=== PATIENT | male | born 1970 | race Two or more races ===

== ENCOUNTER 2019-02-09 11:26 | Emergency (ER) | payer OTHER ==
--- NOTE | 2019-02-09 12:27 | EDM.PDOC ---
ED HPI GENERAL MEDICAL PROBLEM - General Chief Complaint: Upper Extremity Injury/Pain Stated Complaint: BOTH HANDS ARE NUMB Time Seen by Provider: 02/09/19 11:30 Source of Information: Reports: Patient History Limitations: Reports: No Limitations - History of Present Illness INITIAL COMMENTS - FREE TEXT/NARRATIVE: Pt is 48yo M comes in today for bilateral UE numbness/tingling x 5 days. He states it's worst in the upper arm in the morning after sleeping. He then states the elbow to the fingers remain numb throughout the rest of the day, worse when he lifts his arms above his head. 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 He states moving the extremities help. No other symptoms at this time. He has a h/o HTN and HLD, no h/o DM2. He states there is a family h/o DM2 in his parents and sisters. He is from [place] and his PCP is in [place]. He will only be here for this job for another week or so. - Related Data Allergies Allergy/AdvReac Type Severity Reaction Status Date / Time No Known Allergies Allergy Verified 02/09/19 11:36 Home Meds: Home Meds Candesartan Cilexetil 16 mg PO DAILY 02/09/19 [History] Review of Systems - Review of Systems Review Of Systems: ROS reveals no pertinent complaints other than HPI. ED EXAM, GENERAL - Physical Exam Exam: See Below Exam Limited By: No Limitations General Appearance: Alert, WD/WN, No Apparent Distress Eye Exam: Left Eye: EOMI, Normal Inspection, PERRL Ears: Normal External Exam, Hearing Grossly Normal Nose: Normal Inspection, Normal Mucosa, No Blood Throat/Mouth: Normal Inspection, Normal Lips, Normal Teeth, Normal Gums, Normal Oropharynx, Normal Voice, No Airway Compromise Head: Atraumatic, Normocephalic Neck: Normal Inspection, Supple, Non-Tender, Full Range of Motion Respiratory/Chest: No Respiratory Distress, Lungs Clear, Normal Breath Sounds, No Accessory Muscle Use, Chest Non-Tender Cardiovascular: Normal Peripheral Pulses, Regular Rate, Rhythm, No Edema, No Gallop, No JVD, No Murmur, No Rub Peripheral Pulses: 4+: Radial (L), Radial (R) Back Exam: Normal Inspection, Full Range of Motion, NT Extremities: Normal Inspection, Normal Range of Motion, Non-Tender, No Pedal Edema, Normal Capillary Refill, Other (positive Phalen's sign. negative Tinel's sign.). No: Arm Pain, Limited Range of Motion, Pallor Psychiatric: Normal Affect, Normal Mood Skin Exam: Warm, Dry, Intact, Normal Color, No Rash Course - Vital Signs Last Recorded V/S: Last Vital Signs Temp 97.6 F 02/09/19 11:32 Pulse 92 02/09/19 11:32 Resp 18 02/09/19 11:32 BP 143/83 H 02/09/19 11:32 Pulse Ox 97 02/09/19 11:32 - Orders/Labs/Meds Orders: Active Orders 24 hr Category Date Time Status DME for Discharge [COMM] Routine Oth 02/09/19 12:20 Ordered Departure - Departure Time of Disposition: 12:21 Disposition: Home, Self-Care 01 Condition: Good Clinical Impression: Carpal tunnel syndrome on both sides - Discharge Information *PRESCRIPTION DRUG MONITORING PROGRAM REVIEWED*: Not Applicable *COPY OF PRESCRIPTION DRUG MONITORING REPORT IN PATIENT FAITH: Not Applicable Instructions: Carpal Tunnel Syndrome, [id number], Cast or Splint Care, Adult , [id number] Referrals: PCP,None [Primary Care Provider] - Forms: ED Department Discharge Additional Instructions: You were seen in the ED today for numbness/tingling in both arms from the shoulder to the fingers x5 days. At night, it seems you may be sleeping on your shoulder causing numbness in the upper area of your arm. Try to limit sleeping on your arms and try to sleep on your back. The other numbness/tingling from the elbow to fingers is likely from carpal tunnel syndrome. This is a compression of the nerves. Wearing a brace on both wrists will help decrease the swelling caused by repetitive movements. Recommend wearing the brace at night and as much as you can during the day. Also recommend follow up with an orthopedic surgeon for further testing and treatment. In town you may contact Dr. Hammer at for an appointment. - My Orders Last 24 Hours: My Active Orders 02/09/19 12:20 DME for Discharge [COMM] Routine - Assessment/Plan Last 24 Hours: My Active Orders 02/09/19 12:20 DME for Discharge [COMM] Routine
== END 2019-02-09 12:40 | disposition home or self-care (01) ==
LOC: JD.ED 11:26
DX: G56.03 Carpal tunnel syndrome, bilateral upper limbs (principal); Z79.899 Other long term (current) drug therapy
CPT/HCPCS: 99283